=== PATIENT | female | born 1990 | race Caucasian/White ===

== ENCOUNTER → 2021-10-12 16:15 | Outpatient (BNV) | payer MEDICAID, SELFPAY | PROVIDERS: PCP Registered Nurse Community Health; Visit Provider Internal Medicine Medical Oncology | DX: D72.819 Decreased white blood cell count, unspecified (principal) | CPT/HCPCS: 99213 ==

== ENCOUNTER 2021-11-27 | Outpatient (REF) | payer MEDICAID, SELFPAY ==
--- NOTE | ~2021-11-27 | CT_ITS ---
EXAMINATION: CT HEAD WITHOUT CONTRAST CLINICAL INFORMATION: Headaches. COMPARISON: None TECHNIQUE: Contiguous axial imaging was performed from the skull base to vertex without intravenous administration of contrast. This CT examination was performed using dose optimization techniques as appropriate, variously including the following: *Automated exposure control *Adjustment of mA and/or kV according to patient size (this includes techniques or standardized protocols for targeted exams where dose is matched to indication/reason for exam; i.e. extremities or head) *Use of iterative reconstruction technique DLP: 608 mGy-cm FINDINGS: There is no evidence of acute intracranial hemorrhage or territorial infarction. No abnormal mass effect or midline shift is seen. Ivey to white matter differentiation is well preserved. No extra-axial fluid collections are identified. The ventricles are normal in size. There is no abnormal attenuation within the brain parenchyma. The osseous structures and soft tissues are normal. The mastoid air cells and visualized portions of the paranasal sinuses are well aerated. CT/CT head/brain wo con IMPRESSION: No acute intracranial process seen.
== END 2021-11-27 00:01 ==
LOC: HO.CT
PROVIDERS: Visit Provider Registered Nurse Community Health
DX: R51.9 Headache, unspecified (principal)
CPT/HCPCS: 70450

== ENCOUNTER → 2022-03-23 15:22 | Outpatient (BNVA) | payer MEDICAID, SELFPAY | PROVIDERS: PCP Registered Nurse Community Health; Visit Provider Nurse Practitioner Family | DX: R06.83 Snoring (principal); R40.0 Somnolence | CPT/HCPCS: 99202 ==

== ENCOUNTER → 2022-08-08 15:19 | Outpatient (REF) | payer MEDICAID, SELFPAY | LOC: HO.SL 15:19 | PROVIDERS: Visit Provider Nurse Practitioner Family | DX: R40.0 Somnolence (principal); R06.83 Snoring | CPT/HCPCS: 95806 ==

== ENCOUNTER 2025-06-28 13:03 | Outpatient (REF) | payer OTHER, SELFPAY ==
[2025-06-28 18:26] LABS: MANUAL DIFF FLAG NO
[2025-06-28 18:41] LABS: Hematocrit 43.4 % (37.0-47.0); Hemoglobin 14.1 g/dl (12.0-16.0); Imm Gran Abs Auto 0.02 X10*3/uL (0.00-0.03); Imm Gran Pct Auto 0.4 % (0.0-0.4); Lymphocytes Absolute Auto 1.9 X10*3/uL (1.2-4.9); Mean Corpuscular HGB Conc 32.5 g/dl (31.0-35.0); Mean Corpuscular Hemoglobin 26.8 pg (27.0-33.0); Mean Corpuscular Volume 82.4 fL (80.0-98.0); NRBC Abs Auto 0.000 X10*3/uL (0.0-0.012); NRBC Pct Auto 0.0 /100WBC (0.0-0.2); Platelet Count 299 X10*3/uL (160-400); Red Blood Count 5.27 X10*6/uL (4.20-5.50); White Blood Count 5.3 X10*3/uL (4.8-10.8)
[2025-06-28 18:55] LABS: Alanine Aminotransferase 23 U/L (0-31); Albumin Level 4.9 g/dL (3.5-5.0); Alkaline Phosphatase 93 U/L (39-117); Anion Gap 12 (12-20); Aspartate Amino Transferase 25 U/L (5-31); Blood Urea Nitrogen 13 mg/dL (9-16); Calcium 9.4 mg/dL (8.4-10.2); Carbon Dioxide 27 mmol/L (22-29); Chloride 108 mmol/L (96-108); Cholesterol 218 mg/dL (<200); Estimated Glomerular Filt Rate > 60; HDL Cholesterol 72 mg/dL (>40); Potassium 4.5 mmol/L (3.3-5.1); Sodium 142 mmol/L (135-145); Total Protein 7.3 g/dL (6.5-8.0); Triglycerides 54 mg/dL (<150)
[2025-06-28 19:24] LABS: Folate 11.0 ng/mL (> or = 4.0); Vitamin B12 747 pg/mL (200-900)
[2025-06-28 19:29] LABS: Reflex LDLD? No
--- OUTSIDE RECORDS SUMMARY | 2025-06-28 21:48 | XMS_ITS | Encounter Summary ---
Author Organization [facility] Address [address] [facility] [address], [place] [address] Care Team Providers Care Certified Dental Assistant Name Role Phone Altagracia Roberts NP Primary Care Provider [phone] Casandra Baez MD Primary Care Provider Reason for Visit * Reason Onset Date Comments Appointment Request 04/28/2024 Encounter Details Date Type Department Care Team ([facility] st Contact Info) Description 04/28/2024 Telephone [facility] MEDICINE [address] [place], [place] [phone] Altagracia Roberts NP [address] [place], [place] [phone] Appointment Request Social History Tobacco Use Types Packs/Day Years Used Date Smoking Tobacco: Never Assessed Comments Unknown Sex and Gender Information Value Date Recorded Sex Assigned at Female 05/21/2022 10:19 AM EDT Legal Sex Female 10:19 AM EDT Gender Identity Female 05/21/2022 10:19 AM EDT Sexual Orientation Straight 05/21/2022 10 :19 AM EDT documented as of this encounter Miscellaneous Notes * Telephone Encounter - Chetan Beltran - 04/28/2024 3:28 PM EDT Tc from patient calling to request a appt there are no availability at the time for a TP appt documented in this encounter Plan of Treatment Not on file documented as of this encounter Visit Diagnoses Not on filedocumented in this encounter Care Teams Certified Dental Assistant Relationship Specialty Start Date End Date Altagracia Roberts NP [address] [place] [address] PCP - General Family Medicine 08/26/23 05/26/24 Casandra Baez MD [address] [place] [address] PCP - General Family Medicine 05/27/24 documented as of this encounter
--- OUTSIDE RECORDS SUMMARY | 2025-06-28 21:48 | XMS_ITS | Encounter Summary ---
Author Organization [employer] Address [address] [facility] [address] [place] [address] Care Team Providers Care Tag Meter Operator Name Role Phone Casandra Baez MD Primary Care Provider [phone] Encounter Details Date Type Department Care Team (Late st Contact Info) Description 06/15/2025 Telephone [facility] MEDICINE [address] [place], [place] [phone] Casandra Baez MD [address] [place], [place] [phone] Social History Tobacco Use Types Packs/Day Years Used Date Smoking Tobacco: Never Smokeless Tobacco: Never Comments No Sex and Gender Information Value Date Recorded Sex Assigned at Female 05/21/2022 10:19 AM EDT Legal Sex Female 10:19 AM EDT Gender Identity Female 05/21/2022 10:19 AM EDT Sexual Orientation Straight 05/21/2022 10 :19 AM EDT documented as of this encounter Miscellaneous Notes * Telephone Encounter - Michael Patel - 06/15/2025 1:47 PM EST [facility] Contact kaden [phone] documented in this encounter Plan of Treatment Not on file documented as of this encounter Visit Diagnoses Not on filedocumented in this encounter Care Teams Tag Meter Operator Relationship Specialty Start Date End Date Casandra Baez MD [address] [place] [phone] PCP - General Family Medicine 05/27/24 documented as of this encounter
--- OUTSIDE RECORDS SUMMARY | 2025-06-28 21:48 | XMS_ITS | Clinical Summary ---
Author Organization [employer] Address [address] [facility] [address] [place] [address] Care Team Providers Care Registered Nurse Cardiac Telemetry Name Role Phone Casandra Baez MD Primary Care Provider Allergies No known active allergies Medications loratadine (Claritin) 10 MG tabletIndications: Environmental allergies TAKE 1 TABLET BY MOUTH EVERY DAY IN THE MORNING 90 tablet 3 Active dexmethylphenidate XR (Focalin XR) 30 MG 24 hr capsuleIndications :Attention deficit hyperactivity disorder (ADHD), predominantly inattentive type Take 1 capsule (30 mg) by mouth Once per day. Do not crush, chew, or split. 30 capsule 5 Active Active Problems Problem Noted Date Diagnosed Date Obesity 06/11/2025 Assessment & Plan (06/11/2025 9:44 AM EST): - Continue working on lifestyle modifications. - Generic advice as below. Tailor for your unique body, character, and specific condition. Dietary Recommendations: Fruits, vegetables, whole grains, protein foods, and fat-free or low-fat dairy products are healthy choices. Eat different types of protein foods in your diet. This can include seafood, lean meats, poultry, beans, peas, lentils, nuts, seeds, soy products, and eggs. Limit foods and beverages higher in added sugars, saturated fat, and sodium. Exercise Recommendations: At least 150 minutes of moderate-intensity physical activity per week, or an equivalent combination of moderate- and vigorous-intensity activity Attention deficit hyperactiv ity disorder (ADHD), predominantly inattentive type 06/11/2025 Assessment & Plan (06/11/2025 9:59 AM EST): - Her Adult ADHD symptom scores are high. - Will start dexmethylphenidate. Her abuse potential and addiction risk is low. Dizziness 06/11/2025 Assessment & Plan (06/11/2025 10:04 AM EST): - in a setting of central sleep apnea and concussion in 2013 - Head CT normal in 2021 - ?brain fog. Consider evaluating with EEG, although it will be difficult to arrange since she is a single mother. - patient does not drive long distance - consider MRI - consider re-referral to [facility] neurology. Last seen by [facility] neurology for central sleep apnea in 2022 Leukopenia 06/11/2025 Assessment & Plan (06/11/2025 10:07 AM EST): Following with [facility] hematology, last seen in June 2024 Patient had evaluation, and the current diagnosis is benign chronic leukopenia Pediotic lab Encounters Date Type Department Care Team Description 06/15/[address] [address] Casandra Baez MD 06/14/[address] [address] Casandra Baez MD Prior Authorization (PA: dexmethylphenidate XR (Focalin XR) 30 MG 24 hr capsule) 06/11/[address] [address] Casandra Baez MD recall 06/02/[address] [address] Casandra Baez MD Prior Authorization (PA: dexmethylphenidate XR (Focalin XR) 30 MG 24 hr capsule) 05/31/2025 2:30 PM EST Office Visit [address] [address] Casandra Baez MD Chronic nonintractable headache, unspecified headache type (Primary Dx); Dizziness; Screening for diabetes mellitus; Screening for lipid disorders; Routine screening for STI (sexually transmitted infection); Vitamin deficiency; Immunity status testing; Class 2 severe obesity due to excess calories with serious comorbidity and body mass index (BMI) of 35.0 to 35.9 in adult; Encounter for immunization; Attention deficit hyperactivity disorder (ADHD), predominantly inattentive type; Dietary counseling; Exercise counseling; Other neutropenia ([facility]/HCC) 05/30/2025 Travel 05/28/[address] [phone] Casandra Baez MD Insurance 05/28/[address] [phone] Casandra Baez MD chartprep 05/28/[address] [phone] Casandra Baez MD Error (VOID this visit) 05/24/2025 Patient Outreach [address] [phone] Casandra Baez MD Pre-visit Planning (Pre-visit planning - mailbox full ) from Last 3 Months Immunizations Immunization Administration Dates Next Due Influenza, seasonal, injectable, preservative fr ee 05/31/2025 Tdap 05/31/2025 Social History Tobacco Use Types Packs/Day Years Used Date Smoking Tobacco: Never Smokeless Tobacco: Never Tobacco Cessation:Counseling Given: Not Answered Comments No Intention Date Recorded No desire to become (finding) 1 07/31/2024 Sex and Gender Information Value Date Recorded Sex Assigned at Female 05/21/2022 10:19 AM EDT Legal Sex Female 10:19 AM EDT Gender Identity Female 05/21/2022 10:19 AM EDT Sexual Orientation Straight 05/21/2022 10 :19 AM EDT Last Filed Vital Signs Vital Sign Reading Time Taken Comments Blood Pressure 100/70 05/31/2025 3:02 PM EST Pulse 101 05/31/2025 3:02 PM EST Temperature 36 C (96.8 F) 05/31/2025 3:02 PM EST Respiratory Rate 15 05/31/2025 3:02 PM EST Oxygen Saturation 98% 05/31/2025 3:02 PM EST Inhaled Oxygen Concentration - - Weight 79 kg (174 lb 3.2 oz) 05/31/2025 3:02 PM EST Height 153.4 cm (5' 0.39 ) 05/31/2025 3:02 PM ES T Body Mass Index 33.59 05/31/2025 3:02 PM EST Plan of Treatment Health Maintenance Due Date Last Done Comments Depression Screening 1991 HIV Screening 1991 SDOH Screening 1991 COVID-19 Vaccine (#1) 1996 Alcohol/Substance Use Screening 2003 Hepatitis C Screening 2009 Pneumococcal Vaccine: Pediatrics (0 to 5 Years) and At-Risk Patients (6 to 49) Years (1 of 2 - PCV) 2010 Zoster Vaccines (1 of 2) 2010 Pap Smear 2012 Cervical Cancer Screening 2021 HPV/Cotest 2021 Disability Screening 05/30/2026 05/30/2025 Tobacco Screening 05/31/2026 05/31/2025 Family Planning (PISQ) 06/11/2026 06/11/2025 Lipid Panel 11/30/2026 06/28/2025, 11/30/2021 DTaP/Tdap/Td Vaccines (8 - Td or Tdap) 05/31/2035 05/31/2025, 01/01/2006, 06/24/1995, Additional history exists RSV Patients and Patients Aged 60 years or older (1 - 1-dose 75+ series) 2066 HIB Vaccines Completed 12/19/1994, 02/1992, 01/28/1992, Additional history exists IPV Vaccines Completed 06/24/1995, 09/19, 01/28/1992, Additional history exists Hepatitis B Vaccines Completed 04/04/2006, 01/01/2006, 02/28/2004 HPV Vaccines Completed 02/28/2009, 08/2007, 07/10/2007 Meningococcal Vaccine Completed 02/28/2009 Influenza Vaccine Completed 05/31/2025, , 04/14/2013 Hepatitis A Vaccines Aged Out No long er eligible based on patient's age to complete this topic Meningococcal B Vaccine Aged Out No l onger eligible based on patient's age to complete this topic RSV under 20 months Aged Out No longe r eligible based on patient's age to complete this topic Rotavirus Vaccines Aged Out No longer eligible based on patient's age to complete this topic Procedures Procedure Name Priority Date/Time Associated Diagnosis Comments VITAMIN B12/FOLATE, SERUM PANEL Routine 06/28/2025 1:13 PM EST Dizziness Vitamin deficiency LIPID PANEL WITH REFLEX TO DIRECT LDL Routine 06/28/2025 1:13 PM EST Screening for lipid disorders Class 2 severe obesity due to excess calories with serious comorbidity and body mass index (BMI) of 35.0 to 35.9 in adult COMPREHENSIVE METABOLIC PANEL Routine 06/28/2025 1:13 PM EST Dizziness TSH W/REFLEX TO FT4 Routine 06/28/2025 1 :13 PM EST Class 2 severe obesity due to excess calories with serious comorbidity and body mass index (BMI) of 35.0 to 35.9 in adult CBC WITH AUTO DIFFERENTIAL Routine 06/28/2025 1:13 PM EST Dizziness from Last 3 Months Results * Vitamin B12 (Cobalamin) and Folate Panel, Serum (06/28/2025 1:13 PM EST) Vitamin B12 747 200 - 900 pg/mL [facility] Comment:NORMAL 200-900 PG/ML INDETERMINATE 160-199 PG/ML DEFICIENT < 160 PG/ML Folate 11.0 > or = 4.0 ng/mL [facility] Comment:Reference Values:> o r = 4.0 ng/mL< 4.0 ng/mL suggests folate deficiency Methotrexate, aminopterin and folinic acid(leucovorin) are chemotherapeutic agents whose molecularstructures are similar to folate; therefore, the Architectfolate assay cannot be used for patients using these drugs. Blood 06/28/2025 1:13 PM EST 06/28/2025 6:27 PM EST us Casandra Baez MD LAB BLOOD ORDERABLES Final Resul t [facility] [address] [place] [phone] * TSH with Reflex to Free T4 (06/28/2025 1:13 PM EST) TSH reflex Free T4 2.07 0.32 - 4.0 uIU/mL [facility] Blood 06/28/2025 1:13 PM EST 06/28/2025 6:17 PM EST Casandra Baez MD LAB BLOOD ORDERABLES Final Resul t [facility] [address] [place] [address] [phone] * (ABNORMAL) Lipid Panel with Reflex to Direct LDL (06/28/2025 1:13 PM EST) Triglycerides 54 <150 mg/dL [facility] Comment:Desirable Triglyceri de: less than 150 mg/dLBorderline High Triglyceride 150-199 mg/dLHigh Triglyceride: 200-499 mg/dLVery High Triglyceride: greater than or equal to 5OO mg/dL Cholesterol 218(H) <200 mg/dL [facility] Comment:Desirable Cholestero l: less than 200 mg/dLBorderline High Cholesterol: 200-239 mg/dLHigh Cholesterol: greater than 239 mg/dL LDL Cholesterol Calculated 136(H) <100 mg/dL [facility] Comment:Desirable LDL: less than 100 mg/dLNear Optimal/Above Optimal LDL: 110- 129 mg/dLBorderline High LDL: 130-159 mg/dLHigh LDL: 160-189 mg/dLVery High LDL: greater than or equal to 190 mg/dL HDL Cholesterol 72 >40 mg/dL [facility] Comment:Desirable HDL: great er than 40 mg/dL Note: This HDL assay may give artificially low results in patients with liver disease. Blood 06/28/2025 1:13 PM EST 06/28/2025 6:17 PM EST us Casandra Baez MD LAB BLOOD ORDERABLES Final Resul t [facility] [address] [place] [address] [phone] * (ABNORMAL) CBC auto differential (06/28/2025 1:13 PM EST) White Blood Count 5.3 4.8 - 10.8 X10*3/uL [facility] Red Blood Count 5.27 4.20 - 5.50 X10*6/uL [facility] Hemoglobin 14.1 12.0 - 16.0 g/dl [facility] Hematocrit 43.4 37.0 - 47.0 % [facility] Mean Corpuscular Volume 82.4 80.0 - 98.0 fL [facility] Mean Corpuscular Hemoglobin 26.8(L) 27.0 - 33.0 pg [facility] Mean Corpuscular HGB Conc 32.5 31.0 - 35.0 g/dl [facility] Red Cell Distribution Width 12.6 11.0 - 16.0 % [facility] Platelet Count 299 160 - 400 X10*3/uL [facility] Mean Platelet Volume 10.9 9.4 - 12.3 fL [facility] Neutrophils Percent Auto 50.3 45 - 73 % [facility] Imm Gran Pct Auto 0.4 0.0 - 0.4 % [facility] Lymphocytes Percent Auto 36.1 20 - 40 % [facility] Monocytes Percent Auto 8.5 2 - 11 % [facility] Eosinophils Percent Auto 3.8 0 - 4 % [facility] Basophils Percent Auto 0.9 0 - 2 % [facility] NRBC Pct Auto 0.0 0.0 - 0.2 /100WBC [facility] Neutrophils Absolute Auto 2.7 2.0 - 8.3 x10*3/uL [facility] Imm Gran Abs Auto 0.02 0.00 - 0.03 X10*3/uL [facility] Lymphocytes Absolute Auto 1.9 1.2 - 4.9 X10*3/uL [facility] Monocytes Absolute Auto 0.5 0.1 - 1.2 X10*3/uL [facility] Eosinophils Absolute Auto 0.2 0.0 - 0.4 X10*3/uL [facility] Basophils Absolute Auto 0.1 0.0 - 0.2 X10*3/uL [facility] NRBC Abs Auto 0.000 0.0 - 0.012 X10*3/uL [facility] Blood Venous blood specimen / Unknown 06/28/2025 1:13 PM EST 06/28/2025 6:17 PM EST us Casandra Baez MD LAB BLOOD ORDERABLES Final Resul t [facility] [address] [place] [phone] [phone] * Comprehensive Metabolic Panel (06/28/2025 1:13 PM EST) Sodium 142 135 - 145 mmol/L [facility] Potassium 4.5 3.3 - 5.1 mmol/L [facility] Chloride 108 96 - 108 mmol/L [facility] Carbon Dioxide 27 22 - 29 mmol/L [facility] Anion Gap 12 12 - 20 [facility] Urea Nitrogen (BUN) 13 9 - 16 mg/dL [facility] Creatinine, Serum 0.76 0.5 - 1.4 mg/dL [facility] Estimated Glomerular Filt Rate >60 [facility] Comment:Chronic Kidney Disea se: Estimated GFR < 60 mL/min/[id number] Kidney Disease: Estimated GFR < 15 mL/min/1.73m2 Glucose 96 60 - 115 mg/dL [facility] Calcium 9.4 8.4 - 10.2 mg/dL [facility] Bilirubin, Total 0.4 0.0 - 1.0 mg/dL [facility] Aspartate Amino Transferase 25 5 - 31 U/L [facility] Alanine Aminotransferase 23 0 - 31 U/L [facility] Total Protein 7.3 6.5 - 8.0 g/dL [facility] Albumin Level 4.9 3.5 - 5.0 g/dL [facility] Alkaline Phosphatase 93 39 - 117 U/L [facility] Blood Venous blood specimen / Unknown 06/28/2025 1:13 PM EST 06/28/2025 6:17 PM EST Casandra Baez MD LAB BLOOD ORDERABLES Final Resul t Performing Organization Address City/State/[facility] Co de Phone Number [facility] [address] [place] [address] [phone] from Last 3 Months Insurance [facility] Care Teams Registered Nurse Cardiac Telemetry Relationship Specialty Start Date End Date Casandra Baez MD [address] [place] [phone] PCP - General Family Medicine 05/27/24
[2025-06-29 04:01] LABS: Syphilis Screen Nonreactive (Nonreactive)
[2025-06-29 04:39] LABS: HBS Num1 2.05 mIU/mL (0-7.99); HBc Num1 0.03 S/CO (0.00-0.79); HBsAGNum1 0.30 S/CO (0.00-0.99); HIV Num 1 0.07 S/CO (0.00-0.99); Hepatitis B Surface Antigen Negative (Negative); ~HepC Num1 0.06 S/CO (0.00-0.79); ~Hepatitis B Surface Antibody NONREACTIVE (Nonreactive); ~Hepatitis C Antibody Nonreactive (Nonreactive)
[2025-07-02 08:05] LABS: ~Hepatitis A Antibody IgG 0.21 S/CO (0.00-0.99)
== END 2025-06-28 13:04 | disposition home or self-care (01) ==
LOC: HO.HKASLDS 13:03
PROVIDERS: PCP Family Medicine; Visit Provider Family Medicine
DX: Z13.220 Encounter for screening for lipoid disorders (principal); Z01.84 Encounter for antibody response examination; Z11.59 Encounter for screening for other viral diseases; Z11.4 Encounter for screening for human immunodeficiency virus [HIV]; E56.9 Vitamin deficiency, unspecified; E66.812 Obesity, class 2; R42 Dizziness and giddiness; Z68.35 Body mass index [BMI] 35.0-35.9, adult
CPT/HCPCS: 36415; 80053; 80061; 82607; 82746; 83036; 84443; 85025; 86704; 86706; 86708; 86780; 86803; 87340; 87389